=== PATIENT | female | born 1980 | race Caucasian/White ===

== ENCOUNTER 2020-10-19 05:45 | Inpatient (IN) ==
--- NOTE | 2020-10-18 13:35 | History and Physical Report ---
DATE OF ADMISSION: 10/19/2020 She is here for an elective repeat section on 10/19/2020 in labor and delivery. HISTORY OF PRESENT ILLNESS: The patient is a 40-year-old female 4, para 1-0-2-1, at 39 weeks and 1 day, admitted for an elective repeat section. PAST MEDICAL HISTORY: No significant medical problems. PAST SURGICAL HISTORY: Significant for in the past and orthopedic surgery on the left forearm. MEDICATIONS: vitamins. SOCIAL HISTORY: Denies smoking, alcohol or drug use. FAMILY HISTORY: Noncontributory. REVIEW OF SYSTEMS: Negative. PHYSICAL EXAMINATION: HEENT: Within normal limits. LUNGS: Clear to auscultation. CARDIOVASCULAR: Regular rate and rhythm. ABDOMEN: Soft, gravid. EXTREMITIES: Within normal limits. No edema. NEUROLOGIC: Intact. PSYCHIATRIC HISTORY: Negative. LABORATORIES: Coronavirus testing was negative on 10/15/2020 and a group B strep on 10/03/2020 was negative. ASSESSMENT: Term , for repeat section. PLAN: As above.
[2020-10-19] MEDS ORDERED: ceFAZolin 2,000 MG in SYRINGE 0 ML IV SCH (06:00)
[2020-10-19] MEDS ORDERED: LACTATED RINGER'S 1,000 ML IV SCH ×2 (06:00→20:30)
[2020-10-19] MEDS ORDERED: CITRIC ACID/SODIUM CITRATE 15 ML UDC PO SCH (06:00)
--- NOTE | 2020-10-19 07:28 | History & Physical Bridge Note ---
Date of Service October 19, 2020 History & Physical Bridge Note I have examined the patient, reviewed the History & Physical and in the interval since the performance of the History & Physical I have noted the following changes of clinical significance: no changes noted
--- NOTE | 2020-10-19 07:48 | Anesthesiology Consultation ---
Date of Service October 19, 2020 Assessment & Plan Chart Review Chart Review: Acceptable Risk for Surgery and Patient NOT seen in Pre Admission Testing Consults Requested none ASA ASA2 Proposed Anesthesia Anesthesia Type: Spinal Risk / Benefits Reviewed With: PT / POA / Parent / Guardian, Accepts Plan and Informed Consent Obtained Additional Comments: covid test negative History Surgery Operation Date: 10/19/20 07:30 Proposed Procedures p Section in LD - Seth Diaz MD Height/Weight Height: 5 ft 4 in Weight: 80.286 kg Allergies Allergy/AdvReac Type Severity Reaction Status Date / Time No Known Allergies Allergy Verified 10/13/20 08:38 Medications Home Medications Medication Instructions Recorded Confirmed Last Taken prenat.vits,hansel,eom-sfim-ahzpf 1 tab PO DAILY 06/10/20 10/13/20 06/10/20 08:00 [ Vitamin] diphenhydramine HCl [Benadryl] 25 mg PO HS PRN 10/13/20 10/13/20 Unknown NPO Date Last Intake of Fluids: 10/18/20 Time Last Intake of Fluids: 23:00 Date Last Intake of Solids: 10/18/20 Time Last Intake of Solids: 23:00 Past Medical History Medical History No known health problems Exercise / Class Metabolic Activity II 4-5 Yardwork/Stairs/Walk up hill Past Family History Family History Grandmother Family history of diabetes mellitus Past Surgical History Surgical History History of History of dilatation and curettage S/P ORIF (open reduction internal fixation) fracture L arm > plate [place] teeth extracted Past Anesthesia History No Hx of Anesthesia Complications and No Family Hx of Anesthesia Complications History of PONV No Hx of PONV and No Hx of Motion Sickness Social History Smoking Status: Never smoker Do You Dip or Chew Tobacco: No Hx Alcohol Use: No Alcohol type: wine alcohol intake frequency: holidays/special occasions only Hx Substance Use: No substance use type: does not use Physical Exam Vital Signs Last Vital Signs Temp 36.9 C 10/19/20 07:02 Pulse 71 10/19/20 07:02 Resp 18 10/19/20 07:02 BP 108/74 10/19/20 07:02 Constitutional + obese ENMT Mouth: no dentition abnormality Thyromental Distance: < 3.5 Finger Breadths Mallampati Class: II Neck normal visual inspection and trachea midline; neck extension not limited Respiratory normal respiratory effort Auscultation: lungs clear to auscultation bilaterally Cardiovascular Rate/Rhythm: regular rate and regular rhythm Heart Sounds: no murmur Vessels: no carotid bruit Musculoskeletal Spine: lumbar spine normal to inspection Neurologic moves all extremities Motor/Sensory: no sensory deficit Psychiatric Orientation: alert and oriented x 3 Testing Laboratory Results Blood Type A Positive 10/19/20 06:00 Antibody Screen NEGATIVE 10/19/20 06:00
[2020-10-19 07:59] LABS: Hematocrit (blood only) 35.9 % (37-47); Hemoglobin 12.1 g/dL (12.0-16.0); Mean Corpuscular Hemoglobin 29.1 pg (25-34); Mean Corpuscular Volume 86.3 fL (80-100); Mean Platelet Volume 11.8 fL (7.4-10.4); Platelet Count 150 K/uL (130-400); RDW Coefficient of Variation 14.5 % (11.5-14.5); RDW Standard Deviation 45.6 fL (36.4-46.3); Red Blood Count 4.16 M/uL (4.2-5.4); White Blood Count 7.87 K/uL (4.8-10.8)
[2020-10-19 08:05] LABS: Mean Corpuscular Hgb Conc 33.7 g/dL (32-36)
[2020-10-19] MEDS ORDERED: OXYTOCIN 10 UNITS/ML VIAL ONE ×2 (08:55→10:15)
[2020-10-19] MEDS ORDERED: PHENYLEPHRINE HCL 10 MG/ML VIAL ONE (08:59)
[2020-10-19] MEDS ORDERED: MoRPHine SULFATE PF 1 MG/ML 10 ML AMP/VIAL ONE (09:00)
[2020-10-19] MEDS ORDERED: fentaNYL citrate 100 MCG/2 ML VIAL ONE (09:00)
[2020-10-19] MEDS ORDERED: ePHEDrine sulfate 50 MG/ML SYR ONE (09:57)
[2020-10-19] MEDS ORDERED: PROMETHAZINE HCL 25 MG in SODIUM CHLORIDE 0.9% 50 ML IV PRN (10:37)
[2020-10-19] MEDS ORDERED: NALOXONE HCL 0.4 MG/1 ML VIAL/CARP IV PRN (10:37)
[2020-10-19] MEDS ORDERED: MoRPHine SULFATE PF 1 MG/ML 10 ML AMP/VIAL INT SPINAL ONE (10:37)
[2020-10-19] MEDS ORDERED: diphenhydrAMINE 50 MG/ML VIAL IV PRN (10:37)
[2020-10-19] MEDS ORDERED: NALOXONE HCL 0.08 MG in SYRINGE 1.8 ML IV PRN (10:37)
[2020-10-19] MEDS ORDERED: NALOXONE HCL 1 MG in SODIUM CHLORIDE 0.9% 1000ML 1,000 ML IV PRN (10:37)
[2020-10-19] MEDS ORDERED: ONDANSETRON INJ 2 MG/ML 2 ML VIAL IV PRN (10:37)
[2020-10-19] MEDS ORDERED: ePHEDrine sulfate 50 MG/ML AMP IV PRN (10:37)
[2020-10-19] MEDS ORDERED: LACTATED RINGER'S 500 ML IV PRN (10:37)
[2020-10-19] MEDS ORDERED: NO NARCOTICS OR SEDATIVES SCH (10:45)
[2020-10-19] MEDS ORDERED: SODIUM CHLORIDE 0.9% 1000ML 1,000 ML IV SCH (10:45)
[2020-10-19] MEDS ORDERED: DC INTRASPINAL MORPHINE SCH (10:45)
--- NOTE | 2020-10-19 10:57 | Post Operative Brief Note ---
Immediate Post Op Note v1 Date of Surgery October 19, 2020 Pre & Post Diagnosis Operation Date: 10/19/20 07:30 <No data on this case meets the specified criteria> I identified the patient and participated in the time-out.: Yes Procedure Operation Date: 10/19/20 07:30 <No data on this case meets the specified criteria> Surgeon Seth Diaz MD Communicable Disease Specialist Dr. Rainey Estimated Blood Loss 600 Findings Consistent with Post-Op Diagnosis Drains Plasencia Catheter (placed in OR, patient tolerated procedure well. Plasencia draining clear yellow urine during procedure.)
--- NOTE | 2020-10-19 11:37 | Anesthesiology Progress Note ---
Date of Service October 19, 2020 Anesthesia Post Procedure Vital Signs Vital Signs: Temp Pulse Resp BP Pulse Ox 10/19/20 11:32 101 H 99 10/19/20 11:30 99 H 106/63 10/19/20 11:27 91 H 98 10/19/20 11:22 84 97 10/19/20 11:20 93 H 106/64 10/19/20 11:17 84 99 10/19/20 11:15 84 94 10/19/20 11:12 84 93 10/19/20 11:10 88 106/60 93 10/19/20 11:07 87 97 10/19/20 11:00 82 16 119/69 96 10/19/20 10:56 71 100 10/19/20 10:51 74 100 10/19/20 10:50 83 16 117/63 100 10/19/20 10:46 70 100 10/19/20 10:41 71 100 10/19/20 10:40 36.4 C L 69 16 117/65 100 10/19/20 07:02 36.9 C 71 18 108/74 10/19/20 05:57 89 114/71 10/19/20 05:53 37.0 C 89 18 114/71 Transfer of Care Handoff Completed per policy Notes Mental Status: alert / awake / arousable Patient Amnestic to Procedure: Yes Nausea / Vomiting: adequately controlled Pain: adequately controlled Airway Patency, RR, SpO2: stable & adequate BP & HR: stable & adequate Hydration State: stable & adequate Neuraxial Anesthesia: was administered and sensory block is resolving Anesthetic Complications: no major complications apparent
[2020-10-19] MEDS ORDERED: OXYTOCIN 30 UNITS in LACTATED RINGER'S 1,000 ML IV SCH (12:15)
[2020-10-19] MEDS ORDERED: SENNA 8.6 MG TAB PO PRN (12:22)
[2020-10-19] MEDS ORDERED: SUPERCREAM 0.870% 15 GM JAR EXT PRN (12:22)
[2020-10-19] MEDS ORDERED: MAGNESIUM HYDROXIDE SUSP 30 ML UDC PO PRN (12:22)
[2020-10-19] MEDS ORDERED: BENZOCAINE 20% AER SPR 82.5 GM CAN EXT PRN (12:22)
[2020-10-19] MEDS ORDERED: DIPHTHERIA/TETANUS/PERTUSSIS 0.5 ML SYR/VIAL IM ONE (12:22)
[2020-10-19] MEDS ORDERED: HYDROCORTISONE ACETATE 25 MG SUPP PR PRN (12:22)
[2020-10-19] MEDS: KETOROLAC 30 MG/ML VIAL IV PRN ×2 (14:38→23:43)
[2020-10-19] MEDS: SIMETHICONE 80 MG CHEW PO SCH ×3 (17:09→20:54)
[2020-10-19] MEDS: DOCUSATE SODIUM 100 MG CAP PO SCH (20:54)
[2020-10-20] MEDS ORDERED: diphenhydrAMINE Capsule 25 MG CAP PO PRN ×2 (04:38)
[2020-10-20] MEDS ORDERED: diphenhydrAMINE 50 MG/ML VIAL IV PRN (04:38)
[2020-10-20] MEDS ORDERED: PROMETHAZINE HCL 25 MG in SODIUM CHLORIDE 0.9% 50 ML IV PRN (04:38)
[2020-10-20] MEDS ORDERED: ONDANSETRON INJ 2 MG/ML 2 ML VIAL IV PRN (04:38)
[2020-10-20] MEDS ORDERED: IBUPROFEN 600 MG TAB PO ONE (05:40)
[2020-10-20] MEDS ORDERED: oxyCODONE/ACETAMINOPHEN 5mg/325mg TAB PO ONE (05:40)
[2020-10-20 06:02] LABS: Basophils # (auto) 0.02 K/uL (0-0.2); Basophils % (auto) 0.2 %; Eosinophils # (auto) 0.09 K/uL (0-0.5); Eosinophils % (auto) 0.7 %; Hematocrit (blood only) 34.5 % (37-47); Hemoglobin 11.7 g/dL (12.0-16.0); Immature Granulocytes # (auto) 0.04 K/uL (0.00-0.02); Immature Granulocytes % (auto) 0.3 %; Lymphocytes # (auto) 1.08 K/uL (1.2-3.4); Lymphocytes % (auto) 8.3 %; Mean Corpuscular Hemoglobin 29.3 pg (25-34); Mean Corpuscular Hgb Conc 33.9 g/dL (32-36); Mean Corpuscular Volume 86.5 fL (80-100); Mean Platelet Volume 11.6 fL (7.4-10.4); Monocytes % (auto) 4.6 %; Neutrophils % (auto) 85.9 %; Platelet Count 135 K/uL (130-400); RDW Coefficient of Variation 14.7 % (11.5-14.5); RDW Standard Deviation 46.6 fL (36.4-46.3); Red Blood Count 3.99 M/uL (4.2-5.4); White Blood Count 13.03 K/uL (4.8-10.8)
--- NOTE | 2020-10-20 07:39 | Operative Report (OR) ---
DATE OF OPERATION: 10/19/2020 PREOPERATIVE DIAGNOSIS: Term elective repeat section. POSTOPERATIVE DIAGNOSIS: Term elective repeat section. PROCEDURE: Repeat section, low segment, transverse. SURGEON: Seth Diaz MD BURR GRINDER: Cr Rainey MD ANESTHESIA: Spinal. CLINICAL HISTORY: The patient is a 40-year-old female, para 1-0-2-1, at 39 weeks and 1 day, admitted for elective repeat section. Timeout was called prior to the start of the procedure and antibiotics were given preop. DESCRIPTION OF PROCEDURE: Under satisfactory spinal anesthesia, the patient was prepped and draped in usual sterile fashion. A low Pfannenstiel incision through a prior scar was then made entering into the abdominal cavity in successive layers without difficulty. Upon entering into the abdominal cavity, Metzenbaums were used to develop a bladder flap. This was sharply dissected down. A low segment transverse incision over the lower uterine segment was noted. The incision was nicked. Amniotic sac was clear. The incision was widened in the AP diameter. The was then delivered from the vertex presentation with the aid of fundal pressure delivering a live female. Delayed cord clamping. After 1 minute, the cord was clamped and cut. Baby was handed to dolphin researcher. Live female, Apgars 9 and 9, weight 7 pounds 13 ounces. The cord blood was then obtained. Placenta delivered spontaneously and intact. Uterus was then exteriorized. Ring forceps were then placed on both angles in the inferior margin. Another ring was used to dilate the cervix. The uterus was closed in a double layer closure starting with a single layer with interlocking suture followed by a second imbricating suture of 0 Vicryl suture. Tubes and ovaries bilaterally were found to be within normal limits. The contents of the pelvic cavity were then irrigated. The initial sponge, needle, and instrument count were found to be correct. The uterus was then placed back into the normal anatomical position. The lower uterine segment was inspected, no active bleeding was noted. Fascia was then reapproximated from both ends using 0 Vicryl suture in a continuous fashion. Subcuticular space was irrigated, all bleeders were cauterized. Subcuticular space was closed with 3-0 plain suture in a running fashion followed by 4-0 Monocryl for skin. Steri-Strips and Telfa were applied. At the end of the procedure, the uterus was firm. The final sponge, needle and instrument count were found to be correct. ESTIMATED BLOOD LOSS: 600 mL. TOTAL FLUIDS: 900 mL. The patient was then taken to recovery room in stable condition. I attest to the content of the Intraoperative Record and any orders documented therein. Any exception s are noted below.
[2020-10-20] MEDS: SIMETHICONE 80 MG CHEW PO SCH ×4 (07:48→20:34)
[2020-10-20] MEDS: FERROUS SULFATE 325 MG TAB PO SCH (07:48)
[2020-10-20] MEDS: DOCUSATE SODIUM 100 MG CAP PO SCH ×2 (07:48→20:34)
[2020-10-20] MEDS: PRENATAL VITAMIN 1 TAB PO SCH (07:48)
--- NOTE | 2020-10-20 08:29 | Obstetrical Progress Note ---
Date of Service October 20, 2020 Assessment & Plan Admission and Anticipated Discharge Date Admission Date: October 19, 2020 Subjective Patient is seen and examined. She feels well, no complaints. Pain is under control with oral meds. Ambulating without dizziness Has not Voided yet Tolerating regular diet with out N&V Flatus BM none Bleeding is minimal No fever/ chills/ CP/ SOB/ N&V/ Leg pain Breast feeding without problems Lab Results 10/19/20 10/19/20 10/20/20 Range/Units 06:00 06:03 05:46 WBC 7.87 13.03 H (4.8-10.8) K/uL RBC 4.16 L 3.99 L (4.2-5.4) M/uL Hgb 12.1 11.7 L (12.0-16.0) g/dL Hct 35.9 L 34.5 L (37-47) % MCV 86.3 86.5 (80-100) fL MCH 29.1 29.3 (25-34) pg MCHC 33.7 33.9 (32-36) g/dL RDW Std Deviation 45.6 46.6 H (36.4-46.3) fL RDW Coeff of Hanna 14.5 14.7 H (11.5-14.5) % Plt Count 150 135 (130-400) K/uL MPV 11.8 H 11.6 H (7.4-10.4) fL Immature Gran % (Auto) 0.3 % Neut % (Auto) 85.9 % Lymph % (Auto) 8.3 % Towns % (Auto) 4.6 % Eos % (Auto) 0.7 % Baso % (Auto) 0.2 % Neut # (Auto) 11.20 H (1.4-6.5) K/uL Lymph # (Auto) 1.08 L (1.2-3.4) K/uL Towns # (Auto) 0.60 H (0.11-0.59) K/uL Eos # (Auto) 0.09 (0-0.5) K/uL Baso # (Auto) 0.02 (0-0.2) K/uL Immature Gran # (Auto) 0.04 H (0.00-0.02) K/uL Blood Type A Positive Antibody Screen NEGATIVE PE: General: Alert, orientedx3, NAD CVS: S1S2 RRR Lungs; CTAB Abd: soft, NT, ND, BS+, fundus firm, below Umbilicus Dressing: dry, intact, tam is stable Perineum intact, Lochia rubra minimal Ext; NT, no edema, Homans sign neg/ neg AP: 40 yo s/p RC Section, pod# 1 VSS Afebrile doing well Continue routine postop care Encourage ambulation, PO intake All questions were answered D/C home tomorrow Results & Data ([facility]) Vital Signs (Past 12 Hours) Vital Signs Temp Pulse Pulse Resp BP Pulse Ox 10/20/20 04:40 36.7 C 84 18 118/73 97 10/20/20 04:37 18 97 10/20/20 03:18 16 92 10/20/20 02:05 18 96 10/20/20 01:45 16 93 10/20/20 00:55 18 93 10/19/20 23:15 36.8 C 85 16 104/64 95 10/19/20 22:15 18 93 10/19/20 21:15 18 93
[2020-10-20] MEDS ORDERED: NON-FORMULARY MEDICATION (Prenat.Vits,Cal,Min-Iron-Folic Tablet) PO SCH (09:00)
[2020-10-20 09:19] LABS: Albumin Level 2.1 gm/dl (3.4-5.0); BUN Creatinine Ratio 11.9 (10-20); Calcium 8.7 mg/dl (8.5-10.1); Creatinine Clr Calc Pharmacy 159.6 ml/min; Est GFR (African American) 143.2; Est GFR (Non-African American) 123.6; Potassium 3.9 mmol/L (3.5-5.1)
[2020-10-20 09:22] LABS: Albumin Globulin Ratio 0.6 (0.9-2); Bilirubin,Total 0.4 mg/dl (0.2-1); Globulin 3.3 gm/dl (2.5-4.0); Total Protein 5.4 gm/dl (6.4-8.2)
[2020-10-20] MEDS: IBUPROFEN 600 MG TAB PO PRN ×3 (11:59→21:49)
[2020-10-20] MEDS: oxyCODONE/ACETAMINOPHEN 5mg/325mg TAB PO PRN ×3 (11:59→21:50)
[2020-10-20] MEDS ORDERED: bisacodyL 5 MG TABEC PO SCH (20:00)
[2020-10-21] MEDS: IBUPROFEN 600 MG TAB PO PRN ×5 (01:48→22:05)
[2020-10-21] MEDS: oxyCODONE/ACETAMINOPHEN 5mg/325mg TAB PO PRN ×5 (01:48→22:05)
[2020-10-21 06:29] LABS: Basophils # (auto) 0.02 K/uL (0-0.2); Basophils % (auto) 0.2 %; Eosinophils # (auto) 0.17 K/uL (0-0.5); Eosinophils % (auto) 1.9 %; Hematocrit (blood only) 32.3 % (37-47); Hemoglobin 10.9 g/dL (12.0-16.0); Immature Granulocytes # (auto) 0.02 K/uL (0.00-0.02); Immature Granulocytes % (auto) 0.2 %; Lymphocytes # (auto) 1.28 K/uL (1.2-3.4); Mean Corpuscular Hemoglobin 29.5 pg (25-34); Mean Corpuscular Hgb Conc 33.7 g/dL (32-36); Mean Corpuscular Volume 87.3 fL (80-100); Mean Platelet Volume 11.6 fL (7.4-10.4); Monocytes # (auto) 0.62 K/uL (0.11-0.59); Monocytes % (auto) 6.8 %; Neutrophils # (auto) 7.01 K/uL (1.4-6.5); Neutrophils % (auto) 76.9 %; Platelet Count 147 K/uL (130-400); RDW Standard Deviation 48.5 fL (36.4-46.3); White Blood Count 9.12 K/uL (4.8-10.8)
[2020-10-21] MEDS: SIMETHICONE 80 MG CHEW PO SCH ×4 (07:25→22:05)
[2020-10-21] MEDS: DOCUSATE SODIUM 100 MG CAP PO SCH ×2 (07:25→22:06)
[2020-10-21] MEDS: FERROUS SULFATE 325 MG TAB PO SCH (07:25)
[2020-10-21] MEDS: PRENATAL VITAMIN 1 TAB PO SCH (07:25)
--- NOTE | 2020-10-21 10:00 | Surgery Progress Note ---
Date of Service October 21, 2020 Assessment & Plan Admission and Anticipated Discharge Date Admission Date: October 19, 2020 Subjective POD#2 stable out of bed passing gas ambulataing well milk not in yet with baby loosing weight Physical Exam Constitutional: WD/WN, vitals as above comfortable incision /d/i abdomen soft and non-tender no edema neg Tamara's tent d/c in AM Results & Data ([facility]) Vital Signs (Past 12 Hours) Vital Signs Temp Pulse Resp BP Pulse Ox 10/21/20 07:30 36.5 C 79 18 122/73 96 10/20/20 23:55 36.6 C 85 16 119/76 97
[2020-10-21] MEDS ORDERED: bisacodyL 10 MG SUPP PR PRN (10:58)
[2020-10-21 23:51] VITALS: TEMP 98.1
[2020-10-22] MEDS: oxyCODONE/ACETAMINOPHEN 5mg/325mg TAB PO PRN ×3 (03:59→13:04)
[2020-10-22] MEDS: IBUPROFEN 600 MG TAB PO PRN ×3 (03:59→13:04)
[2020-10-22 08:28] VITALS: BP 130/84; PULSE 66; O2SAT 97
[2020-10-22] MEDS: DOCUSATE SODIUM 100 MG CAP PO SCH (08:33)
[2020-10-22] MEDS: FERROUS SULFATE 325 MG TAB PO SCH (08:33)
[2020-10-22] MEDS: PRENATAL VITAMIN 1 TAB PO SCH (08:33)
[2020-10-22] MEDS: SIMETHICONE 80 MG CHEW PO SCH (08:33)
--- NOTE | 2020-10-22 10:07 | Obstetrical Progress Note ---
Date of Service October 22, 2020 Assessment & Plan (1) delivery delivered: POD #3 Pt doing well No complaints s/c home with instructions Results & Data ([facility]) Vital Signs (Past 12 Hours) Vital Signs Temp Pulse Resp BP Pulse Ox 10/22/20 07:40 36.7 C 66 18 130/84 97 10/21/20 23:15 36.7 C 75 16 120/81 99
== END 2020-10-22 13:20 | disposition home or self-care (01) | DRG 788 ==
LOC: 4S1 05:45 → EDSTATUS 07:30 → 4S2 15:17